=== PATIENT | male | born 1985 | race Caucasian/White ===

== ENCOUNTER → 2018-06-26 | Outpatient (CLI) | payer BC ==
[~2018-06-26] VITALS: Ht 182.9 cm; Wt 87.3 kg
[2018-06-26 11:44] VITALS: BP 130/70
== END ==
LOC: AMSURD 11:13
PROVIDERS: Family Medicine
DX: I49.9 Cardiac arrhythmia, unspecified (principal)

== ENCOUNTER → 2018-12-04 | Outpatient (CLI) | payer BC | LOC: AMSURD 13:00 | DX: I49.3 Ventricular premature depolarization (principal); R00.2 Palpitations ==

== ENCOUNTER → 2020-02-08 | Outpatient (CLI) | payer BC ==
[2018-12-04 13:00] VITALS: BP 126/58
== END ==
LOC: RAD 07:45
DX: R60.0 Localized edema (principal)